=== PATIENT | female | born 1995 ===

== ENCOUNTER 2019-10-13 09:49 | Outpatient (CLI) | payer OTHER ==
--- NOTE | 2019-10-13 11:55 | ULT ---
RIGHT BREAST DIAGNOSTIC ULTRASOUND: Date: 10/13/19 INDICATION: Palpable abnormality in the right breast 5 o'clock position, 7 cm from the nipple. FINDINGS: There is no suspicious sonographic abnormality seen within the region of palpable interest. IMPRESSION: No suspicious sonographic abnormality seen within the region of palpable concern. Would recommend ref erral back to the ordering clinician. Negative imaging should never deter biopsy if findings on clini huber exam are suspicious. Patient was counseled on the findings prior to leaving the breast center. POS: OFF
== END 2019-10-13 09:50 | disposition home or self-care (01) ==
LOC: BICULT 09:49
PROVIDERS: ATTEND Advanced Practice Midwife
DX: N63.10 Unspecified lump in the right breast, unspecified quadrant (principal)